=== PATIENT | male | born 1995 | race Caucasian/White ===

== ENCOUNTER 2017-06-18 15:43 | Emergency (ER) | payer OTHER | END 2017-06-18 16:37 | disposition home or self-care (01) | LOC: E/R 16:37 | DX: L05.02 Pilonidal sinus with abscess (principal) | CPT/HCPCS: 99283 ==

== ENCOUNTER 2018-12-17 21:42 | Emergency (ER) | payer SELFPAY, OTHER ==
[2018-12-17] MEDS: DIPHTH/TET/ACEL PERTUSS (ADULT) 0.5 ML VIAL IM* (22:56)
== END 2018-12-17 23:20 | disposition home or self-care (01) ==
LOC: FTE 21:42
DX: S90.414A Abrasion, right lesser toe(s), initial encounter (principal); W45.0XXA Nail entering through skin, initial encounter; Y92.9 Unspecified place or not applicable; Z23 Encounter for immunization
CPT/HCPCS: 90471; 90715; 99283-25